=== PATIENT | male | born 1995 | race Caucasian/White ===

== ENCOUNTER → 2020-08-08 | Emergency (ER) | payer MEDICAID ==
[~2020-08-08] VITALS: Ht 180.3 cm; Wt 90.9 kg
[~2020-08-08] MED LIST: CARAFATE1 G PO; CEPHALEXIN500 M1 PO; PROTONIX40 MG PO
[2020-08-08 17:36] VITALS: BP 145/91; Ht 180.3 cm; Wt 90.9 kg
== END | disposition home or self-care (01) ==
LOC: D.ER 17:20
DX: S81.852A Open bite, left lower leg, initial encounter (principal); W54.0XXA Bitten by dog, initial encounter; Y93.9 Activity, unspecified; Y92.9 Unspecified place or not applicable; K21.9 Gastro-esophageal reflux disease without esophagitis